=== PATIENT | male | born 1990 | race Caucasian/White ===

== ENCOUNTER 2018-07-27 20:18 | Emergency (ER) | payer MEDICAID ==
[~2018-07-27] VITALS: Ht 170.2 cm; Wt 73.0 kg
[2018-07-27 22:26] VITALS: BP 114/62
== END 2018-07-27 22:28 | disposition home or self-care (01) ==
LOC: ER 20:18
DX: T25.231A Burn of second degree of right toe(s) (nail), initial encounter (principal); X08.8XXA Exposure to other specified smoke, fire and flames, initial encounter; Y93.89 Activity, other specified; Y92.89 Other specified places as the place of occurrence of the external cause; Y99.8 Other external cause status
CPT/HCPCS: 99281; 99283